=== PATIENT | female | born 1990 | race Caucasian/White ===

== ENCOUNTER 2019-04-09 15:47 | Inpatient (IN) | payer MEDICAID ==
[~2019-04-09] VITALS: Ht 157.5 cm; Wt 51.3 kg
[2019-04-09] MEDS ORDERED: ZOLPIDEM TARTRATE 10 MG TABLET PO PRN (18:30)
[2019-04-09] MEDS ORDERED: QUEtiapine FUMARATE 100 MG TABLET PO PRN (18:30)
[2019-04-09] MEDS ORDERED: LORazepam 2 MG TABLET PO PRN (18:30)
[2019-04-09 19:00] VITALS: BP 100/64
[2019-04-09 19:36] VITALS: BP 100/64
[2019-04-09 20:00] VITALS: BP 104/68
[2019-04-09 21:00] VITALS: BP 106/66
[2019-04-09 22:00] VITALS: BP 104/62
[2019-04-10] VITALS (9 sets, daily range): BP systolic 97–113; BP diastolic 62–69
[2019-04-10 08:12] LABS: BASOPHILS % (AUTO) 1.3 % (0.0-2.0); EOSINOPHILS % (AUTO) 4.5 % (1.0-6.0); HEMATOCRIT 35.5 % (36-46); HEMOGLOBIN 11.9 g/dL (12.0-16.0); LYMPHOCYTES # (AUTO) 1.7 K/uL (1.0-4.8); LYMPHOCYTES % (AUTO) 24.8 % (22.0-44.0); MEAN CORPUSCULAR HEMOGLOBIN 30.7 pg (26.0-34.0); MEAN CORPUSCULAR HGB CONC 33.6 G/dL (31.0-37.0); MEAN CORPUSCULAR VOLUME 91 fL (80-100); MONOCYTES # (AUTO) 0.7 K/uL (0.1-1.0); MONOCYTES % (AUTO) 9.9 % (2.0-9.0); NEUTROPHILS % (AUTO) 59.5 % (40.0-70.0); PLATELET COUNT (AUTO) 340 K/uL (150-450); RED CELL DISTRIBUTION WIDTH 13.7 % (11.5-14.5)
[2019-04-10 08:32] LABS: ALANINE AMINOTRANSFERASE 18 U/L (12-78); ALBUMIN 3.6 g/dL (3.4-5.0); ALKALINE PHOSPHATASE 70 U/L (46-116); ANION GAP 5 mmol/L (8-16); ASPARTATE AMINOTRANSFERASE 17 U/L (15-37); BILIRUBIN,TOTAL 0.7 mg/dL (0.1-1.0); CALCIUM, TOTAL 8.9 mg/dL (8.8-10.5); CARBON DIOXIDE 29 mmol/L (22-29); CHLORIDE 104 mmol/L (98-107); CHOL/HDL RATIO 3.6 (3.9-5.7); CHOLESTEROL 231 mg/dL (131-200); CREATININE 0.79 mg/dL (0.60-1.30); FREE T4 (FREE THYROXINE) 1.43 ng/dL (0.76-1.46); GLOMERULAR FILTR. RATE CALC > 60 mL/min (>60); GLUCOSE,RANDOM 87 mg/dL (70-110); HCG,QUANTITATIVE < 1 mIU/mL (0-6); HDL CHOLESTEROL 65 mg/dL (40-60); LDL CHOL (CALC.) 142 mg/dL (0-130); POTASSIUM 3.9 mmol/L (3.5-5.1); SODIUM SERUM 138 mmol/L (136-145); THYROID STIMULATING HORMONE 1.96 uIU/mL (0.36-3.74); TOTAL PROTEIN, SERUM 6.9 g/dL (6.4-8.2); TRIGLYCERIDES 121 mg/dL (15-150); UREA NITROGEN, BLOOD 14 mg/dL (7-18)
[2019-04-10 08:39] LABS: HEMOGLOBIN A1C 5.5 % (4.5-6.2)
[2019-04-10] MEDS ORDERED: BISACODYL 5 MG EC TABLET PO PRN (09:30)
[2019-04-10] MEDS ORDERED: LACTULOSE 20 GM/30 ML SOLUTION UDCUP PO PRN (09:30)
[2019-04-10] MEDS: DOCUSATE SODIUM 250 MG CAPSULE PO SCH ×2 (09:45→17:39)
[2019-04-10] MEDS ORDERED: OLANZapine 5 MG RAPDIS TABLET PO PRN (12:15)
[2019-04-10] MEDS ORDERED: PROMETHAZINE HCL 25 MG TABLET PO PRN (12:15)
[2019-04-10] MEDS ORDERED: MAG HYDROX/AL HYDROX/SIMETH ES 30 ML SUSPENSION UDCUP PO PRN (12:15)
[2019-04-10] MEDS ORDERED: TUBERCULIN, PURIFIED PROTEIN DERIVATIVE 5 TU/0.1 ML SYRINGE ID ONE (12:15)
[2019-04-10] MEDS ORDERED: ACETAMINOPHEN 325 MG TABLET PO PRN (12:15)
[2019-04-10] MEDS ORDERED: HydrOXYzine PAMOATE 50 MG CAPSULE PO PRN (12:15)
[2019-04-10] MEDS ORDERED: LOPERAMIDE HCL 2 MG CAPSULE PO PRN (12:15)
[2019-04-10] MEDS ORDERED: MAGNESIUM HYDROXIDE SUSPENSION 30 ML UDCUP PO PRN (12:15)
[2019-04-10] MEDS: THIAMINE HCL 100 MG TABLET PO SCH (17:39)
[2019-04-10] MEDS: OLANZapine 5 MG RAPDIS TABLET PO SCH (20:48)
[2019-04-10] MEDS: GuaiFENesin/D-METHORPHAN [SUGAR-FREE] 200-20MG/10 ML SYRUP UDCUP PO PRN (21:45)
[2019-04-11 02:21] VITALS: BP 106/62
[2019-04-11 06:36] VITALS: BP 103/67
[2019-04-11 08:05] LABS: CHOL/HDL RATIO 3.8 (3.9-5.7)
[2019-04-11 08:10] VITALS: BP 94/65
[2019-04-11] MEDS: FOLIC ACID 1 MG TABLET PO SCH (08:21)
[2019-04-11] MEDS: MULTIVITAMINS WITH MINERALS, THERAPEUTIC TABLET PO SCH (08:21)
[2019-04-11] MEDS: FLUoxetine HCL 20 MG CAPSULE PO SCH (08:21)
[2019-04-11] MEDS: THIAMINE HCL 100 MG TABLET PO SCH ×2 (08:21→16:16)
[2019-04-11] MEDS: DOCUSATE SODIUM 250 MG CAPSULE PO SCH ×2 (08:21→16:16)
[2019-04-11] MEDS: NALTREXONE HCL 50 MG TABLET PO SCH (08:21)
[2019-04-11 09:02] VITALS: BP 94/65
[2019-04-11] MEDS: GuaiFENesin/D-METHORPHAN [SUGAR-FREE] 200-20MG/10 ML SYRUP UDCUP PO PRN (16:16)
[2019-04-11 17:19] VITALS: BP 121/69
[2019-04-11 18:10] VITALS: BP 121/69
[2019-04-11] MEDS: OLANZapine 5 MG RAPDIS TABLET PO SCH (20:36)
[2019-04-12 05:34] VITALS: BP 101/66
[2019-04-12 06:54] VITALS: BP 101/66
[2019-04-12 08:09] VITALS: BP 100/53
[2019-04-12 09:17] VITALS: BP 100/53
[2019-04-12] MEDS: MULTIVITAMINS WITH MINERALS, THERAPEUTIC TABLET PO SCH (09:29)
[2019-04-12] MEDS: NALTREXONE HCL 50 MG TABLET PO SCH (09:29)
[2019-04-12] MEDS: THIAMINE HCL 100 MG TABLET PO SCH ×2 (09:29→16:08)
[2019-04-12] MEDS: FOLIC ACID 1 MG TABLET PO SCH (09:29)
[2019-04-12] MEDS: FLUoxetine HCL 20 MG CAPSULE PO SCH (09:29)
[2019-04-12] MEDS: DOCUSATE SODIUM 250 MG CAPSULE PO SCH ×2 (09:29→16:08)
[2019-04-12 16:00] VITALS: BP 118/86
[2019-04-12 16:05] VITALS: BP 118/86
[2019-04-12] MEDS: OLANZapine 5 MG RAPDIS TABLET PO SCH (20:11)
[2019-04-13 06:17] VITALS: BP 101/67
[2019-04-13 08:04] VITALS: BP 103/61
[2019-04-13 08:09] VITALS: BP 103/61
[2019-04-13] MEDS: MULTIVITAMINS WITH MINERALS, THERAPEUTIC TABLET PO SCH (08:34)
[2019-04-13] MEDS: DOCUSATE SODIUM 250 MG CAPSULE PO SCH ×2 (08:34→16:55)
[2019-04-13] MEDS: FLUoxetine HCL 20 MG CAPSULE PO SCH (08:34)
[2019-04-13] MEDS: THIAMINE HCL 100 MG TABLET PO SCH ×2 (08:34→16:55)
[2019-04-13] MEDS: NALTREXONE HCL 50 MG TABLET PO SCH (08:34)
[2019-04-13] MEDS: FOLIC ACID 1 MG TABLET PO SCH (08:34)
[2019-04-13 16:19] VITALS: BP 115/72
[2019-04-13] MEDS: GuaiFENesin/D-METHORPHAN [SUGAR-FREE] 200-20MG/10 ML SYRUP UDCUP PO PRN (16:55)
[2019-04-13] MEDS: OLANZapine 5 MG RAPDIS TABLET PO SCH (20:40)
[2019-04-14 03:17] VITALS: BP 102/68
[2019-04-14 08:14] VITALS: BP 121/57
[2019-04-14] MEDS: NALTREXONE HCL 50 MG TABLET PO SCH (08:30)
[2019-04-14] MEDS: MULTIVITAMINS WITH MINERALS, THERAPEUTIC TABLET PO SCH (08:30)
[2019-04-14] MEDS: DOCUSATE SODIUM 250 MG CAPSULE PO SCH ×2 (08:30→16:28)
[2019-04-14] MEDS: FLUoxetine HCL 20 MG CAPSULE PO SCH (08:30)
[2019-04-14] MEDS: FOLIC ACID 1 MG TABLET PO SCH (08:30)
[2019-04-14] MEDS: THIAMINE HCL 100 MG TABLET PO SCH ×2 (08:30→16:28)
[2019-04-14 17:21] VITALS: BP 117/68
[2019-04-14 18:00] VITALS: BP 117/68
[2019-04-14] MEDS: OLANZapine 10 MG RAPDIS TABLET PO SCH (20:36)
[2019-04-15 02:13] VITALS: BP 119/66
[2019-04-15 08:09] VITALS: BP 150/64
[2019-04-15] MEDS: MULTIVITAMINS WITH MINERALS, THERAPEUTIC TABLET PO SCH (08:14)
[2019-04-15] MEDS: FOLIC ACID 1 MG TABLET PO SCH (08:14)
[2019-04-15] MEDS: FLUoxetine HCL 20 MG CAPSULE PO SCH (08:14)
[2019-04-15] MEDS: NALTREXONE HCL 50 MG TABLET PO SCH (08:14)
[2019-04-15] MEDS: THIAMINE HCL 100 MG TABLET PO SCH ×2 (08:14→16:27)
[2019-04-15] MEDS: DOCUSATE SODIUM 250 MG CAPSULE PO SCH ×2 (08:14→16:27)
[2019-04-15 16:22] VITALS: BP 110/67
[2019-04-15] MEDS: OLANZapine 10 MG RAPDIS TABLET PO SCH (20:36)
[2019-04-16 04:01] VITALS: BP 112/76
[2019-04-16 08:11] VITALS: BP 133/73
[2019-04-16] MEDS: MULTIVITAMINS WITH MINERALS, THERAPEUTIC TABLET PO SCH (08:51)
[2019-04-16] MEDS: THIAMINE HCL 100 MG TABLET PO SCH ×2 (08:51→16:29)
[2019-04-16] MEDS: DOCUSATE SODIUM 250 MG CAPSULE PO SCH ×2 (08:51→16:29)
[2019-04-16] MEDS: FOLIC ACID 1 MG TABLET PO SCH (08:51)
[2019-04-16] MEDS: NALTREXONE HCL 50 MG TABLET PO SCH (08:51)
[2019-04-16] MEDS: FLUoxetine HCL 20 MG CAPSULE PO SCH (08:51)
[2019-04-16] MEDS ORDERED: NALT50TA PO (12:22)
[2019-04-16] MEDS ORDERED: FLUO-191 PO (12:22)
[2019-04-16] MEDS ORDERED: OLAN10TA22 PO (12:22)
[2019-04-16 16:10] VITALS: BP 120/67
[2019-04-16] MEDS: OLANZapine 10 MG RAPDIS TABLET PO SCH (20:51)
[2019-04-17 05:51] VITALS: BP 100/60
[2019-04-17] MEDS: FOLIC ACID 1 MG TABLET PO SCH (08:06)
[2019-04-17] MEDS: FLUoxetine HCL 20 MG CAPSULE PO SCH (08:06)
[2019-04-17] MEDS: THIAMINE HCL 100 MG TABLET PO SCH (08:06)
[2019-04-17] MEDS: DOCUSATE SODIUM 250 MG CAPSULE PO SCH (08:06)
[2019-04-17] MEDS: NALTREXONE HCL 50 MG TABLET PO SCH (08:07)
[2019-04-17] MEDS: MULTIVITAMINS WITH MINERALS, THERAPEUTIC TABLET PO SCH (08:07)
[2019-04-17 08:17] VITALS: BP 109/70
== END 2019-04-17 15:35 | disposition home or self-care (01) | DRG 750 ==
LOC: B3A 18:33
PROVIDERS: ADMIT Psychiatry & Neurology Psychiatry; ATTEND Psychiatry & Neurology Psychiatry
DX: F25.9 Schizoaffective disorder, unspecified (principal); R45.851 Suicidal ideations; Z91.19 Patient's noncompliance with other medical treatment and regimen; F12.90 Cannabis use, unspecified, uncomplicated; F41.0 Panic disorder [episodic paroxysmal anxiety]; F32.9 Major depressive disorder, single episode, unspecified; F41.9 Anxiety disorder, unspecified
CPT/HCPCS: 83036; 84439; 84443; 87081